=== PATIENT | female | born 1970 | race African-American/Black ===

== ENCOUNTER 2018-11-29 07:30 | Inpatient (IN) ==
[2018-12-02 12:57] LABS: Basophils % 0.6 % (0.0-0.8); Eosinophils # 0.4 10*3/uL (0.0-0.87); Eosinophils % 5.7 % (0.00-10.9); Hematocrit 36.7 VOL% (35.7-47.0); Hemoglobin 12.1 GM/DL (12.0-16.0); Immature Granulocytes % 0.2 %; Immature Granulocytes Absolute 0.01 #; Lymphocytes # 1.9 10*3/uL (1.4-4.0); Lymphocytes % 29.3 % (21.3-54.2); Mean Corpuscular Volume 90.2 FL (87-102); Mean Platelet Volume 9.7 FL (9.6-12.0); Monocytes % 7.8 % (1.7-12.7); Neutrophils % 56.4 % (38.7-73.9); Platelet Count 450 T/CUMM (130-400); Red Blood Count 4.07 MC/CUMM (3.8-5.5); Red Cell Distribution Width 13.2 % (9.3-17.3); White Blood Count 6.5 T/CUMM (4-12)
[2018-12-02 13:06] LABS: Apearance,Urine CLEAR (Clear); Bilirubin,Urine Negative (Negative); Blood, Urine Negative (Negative); Glucose,Urine (UA) Negative (Negative); Ketones,Urine Negative (Negative); Mucus,Urine Occasional /LPF (Occasional); Nitrite,Urine Negative (Negative); Protein,Urine Negative; RBC,Urine 1 /HPF (0-4); Squamous Epithelial Cell,Urine Occasional /HPF (0-10); Urine Color Yellow (Yellow); Urine Urobilinogen < 2.0 EU/DL (0.2-1.0)
[2018-12-02 13:36] LABS: Alanine Aminotransferase 20 U/L (13-56); Albumin 3.7 G/DL (3.4-5.0); Alkaline Phosphatase 66 U/L (45-117); Aspartate Amino Transferase 15 U/L (0-37); Bilirubin,Total < 0.39 MG/DL (0.2-1.0); Blood Urea Nitrogen 8 MG/DL (7-18); Glucose 82 MG/DL (74-106); HDL Cholesterol 66 MG/DL (40-60); Osmolality,Calculated 269.8 MOS/KG (273-304); Risk Ratio 2.53; Total Protein 7.6 G/DL (6.4-8.3); Triglycerides 148 MG/DL (2-150); VLDL CHOLESTEROL 29.6 MG/DL
[2018-12-02 14:23] LABS: HIV Antigen/Antibody Result Nonreactive (Nonreactive)
[2018-12-20] MEDS ORDERED: AMPICILLIN/SULBACTAM 3,000 MG VIAL ONE (05:52)
[2018-12-20] MEDS ORDERED: LACTATED RINGERS 1,000 ML IV SCH ×2 (06:00→09:30)
[2018-12-20] MEDS ORDERED: AMPICILLIN/SULBACTAM 3,000 MG in SODIUM CHLORIDE 0.9% 100 ML IV ONE (06:00)
[2018-12-20] MEDS ORDERED: MICROFIBRILLAR COLLAGEN POWDER 1 GM CAN TOP ONE (06:43)
[2018-12-20] MEDS ORDERED: LIDOCAINE 1%/EPI INJ 20 ML VIAL ONE (06:43)
[2018-12-20] MEDS ORDERED: BUPIVACAINE 0.5% 50 ML VIAL ONE (07:04)
[2018-12-20] MEDS ORDERED: ACETAMINOPHEN 325 MG TABLET PO PRN (09:08)
[2018-12-20] MEDS ORDERED: BENZOCAINE/MENTHOL LOZENGE 18/BOX PO PRN (09:08)
[2018-12-20] MEDS ORDERED: BISACODYL 10 MG SUPP RECTAL PRN (09:08)
[2018-12-20] MEDS ORDERED: ONDANSETRON 4 MG/2 ML VIAL IV PRN ×2 (09:08→09:36)
[2018-12-20] MEDS ORDERED: ONDANSETRON 4 MG/2 ML VIAL ONE (09:31)
[2018-12-20] MEDS ORDERED: HYDROmorphone 2 MG/1 ML VIAL ONE (09:31)
[2018-12-20] MEDS ORDERED: MEPERIDINE 25 MG/1 ML VIAL IV PRN (09:36)
[2018-12-20] MEDS: HYDROmorphone 2 MG/1 ML VIAL IV PRN ×4 (09:45→19:57)
[2018-12-20] MEDS ORDERED: SEVOFLURANE 1 UNIT/15 MINUTE INH ONE (09:50)
[2018-12-20] MEDS ORDERED: PROPOFOL 200 MG/20 ML VIAL IV ONE (09:50)
[2018-12-20] MEDS ORDERED: fentaNYL 100 MCG/2 ML VIAL ONE (09:50)
[2018-12-20] MEDS ORDERED: KETOROLAC 30 MG/1 ML VIAL ONE (09:51)
[2018-12-20] MEDS ORDERED: MIDAZOLAM 2 MG/2 ML VIAL ONE (09:51)
[2018-12-20] MEDS ORDERED: PHENYLEPHRINE 1 MG/10 ML SYRINGE IV ONE (09:51)
[2018-12-20] MEDS ORDERED: GLYCOPYRROLATE 0.4 MG/2 ML VIAL ONE (09:51)
[2018-12-20] MEDS ORDERED: DEXAMETHASONE 4 MG/1 ML VIAL ONE (09:51)
[2018-12-20] MEDS ORDERED: LACTATED RINGERS 1,000 ML IV ONE (09:52)
[2018-12-20] MEDS ORDERED: SUCCINYLCHOLINE 200 MG/10 ML VIAL ONE (09:52)
[2018-12-20] MEDS ORDERED: NEOSTIGMINE 10 MG/10 ML VIAL ONE (09:52)
[2018-12-20] MEDS ORDERED: ROCURONIUM 100 MG/10 ML VIAL IV ONE (09:52)
[2018-12-20] MEDS ORDERED: ACETAMINOPHEN 1,000 MG/100 ML VIAL IV ONE (09:52)
[2018-12-20 09:57] LABS: Apearance,Urine CLEAR (Clear); Bilirubin,Urine Negative (Negative); Blood, Urine Small mg/dL (Negative); Glucose,Urine (UA) Negative (Negative); Ketones,Urine Negative (Negative); Nitrite,Urine Negative (Negative); Protein,Urine Negative; RBC,Urine <1 /HPF (0-4); Urine Color Colorless (Yellow); Urine Specific Gravity 1.005 (1.001-1.035); Urine Urobilinogen < 2.0 EU/DL (0.2-1.0)
[2018-12-20] MEDS: SODIUM CHLORIDE 0.9% 1,000 ML IV SCH ×2 (13:08→21:02)
[2018-12-20] MEDS: ceFAZolin 1,000 MG in SYRINGE 1 EACH IV SCH ×2 (15:50→23:33)
[2018-12-20 17:53] LABS: Basophils % 0.1 % (0.0-0.8); Hematocrit 33.3 VOL% (35.7-47.0); Hemoglobin 10.8 GM/DL (12.0-16.0); Immature Granulocytes % 0.7 %; Immature Granulocytes Absolute 0.11 #; Lymphocytes # 0.3 10*3/uL (1.4-4.0); Lymphocytes % 1.8 % (21.3-54.2); Mean Corpuscular HGB Conc 32.4 GM/DL (32-36); Mean Corpuscular Volume 91.5 FL (87-102); Mean Platelet Volume 9.9 FL (9.6-12.0); Monocytes % 1.6 % (1.7-12.7); Neutrophils % 95.8 % (38.7-73.9); Platelet Count 363 T/CUMM (130-400); Red Blood Count 3.64 MC/CUMM (3.8-5.5); Red Cell Distribution Width 13.2 % (9.3-17.3); White Blood Count 16.7 T/CUMM (4-12)
[2018-12-20 18:23] LABS: Lymphocytes 3 % (20-55); Segmented Neutrophils 95 % (50-85); Total Cells Counted 100
[2018-12-20 18:32] LABS: Platelet Estimate Normal
[2018-12-20 18:33] LABS: Hypochromasia Slight
[2018-12-20] MEDS: IBUPROFEN 800 MG TABLET PO PRN (23:47)
[2018-12-21 06:26] LABS: Basophils % 0.2 % (0.0-0.8); Eosinophils % 0.1 % (0.00-10.9); Hematocrit 28.7 VOL% (35.7-47.0); Hemoglobin 9.3 GM/DL (12.0-16.0); Immature Granulocytes % 0.6 %; Immature Granulocytes Absolute 0.07 #; Lymphocytes # 1.2 10*3/uL (1.4-4.0); Lymphocytes % 9.6 % (21.3-54.2); Mean Corpuscular HGB Conc 32.4 GM/DL (32-36); Mean Corpuscular Volume 90.8 FL (87-102); Mean Platelet Volume 9.7 FL (9.6-12.0); Monocytes % 7.5 % (1.7-12.7); Platelet Count 315 T/CUMM (130-400); Red Blood Count 3.16 MC/CUMM (3.8-5.5); White Blood Count 12.4 T/CUMM (4-12)
[2018-12-21] MEDS: METOCLOPRAMIDE 10 MG TABLET PO SCH ×3 (09:02→23:42)
[2018-12-21] MEDS: MAGNESIUM HYDROXIDE SUSP 30 ML UDCUP PO PRN ×2 (09:02→22:56)
[2018-12-21] MEDS: IBUPROFEN 800 MG TABLET PO PRN ×2 (11:05→23:44)
[2018-12-21] MEDS: DOCUSATE SODIUM 100 MG CAPSULE PO PRN (21:40)
[2018-12-22] MEDS ORDERED: MAGNESIUM CITRATE 300 ML BOTTLE PO ONE (07:36)
[2018-12-22] MEDS: DOCUSATE SODIUM 100 MG CAPSULE PO PRN (08:52)
[2018-12-22] MEDS: METOCLOPRAMIDE 10 MG TABLET PO SCH ×2 (08:52→16:10)
[2018-12-22] MEDS: IBUPROFEN 800 MG TABLET PO PRN (10:36)
[2018-12-22 11:34] VITALS: BP 122/73
[2018-12-22] MEDS ORDERED: oxyCODONE/ACETAMINOPHEN 5-325 MG TABLET PO PRN (12:38)
== END 2018-12-22 16:00 | disposition home or self-care (01) | DRG 743 ==
LOC: N.SDSINP 12-20 05:49 → N.OB 12-20 10:42
PROVIDERS: ADMIT Obstetrics & Gynecology; ATTEND Obstetrics & Gynecology

== ENCOUNTER 2020-09-26 17:36 | Observation (INO) ==
[2020-09-26] MEDS ORDERED: NITROGLYCERIN SL 0.4 MG TABLET SL PRN ×2 (18:07→22:56)
[2020-09-26] MEDS ORDERED: ASPIRIN 325 MG TABLET PO STA (18:07)
[2020-09-26] MEDS ORDERED: NITROGLYCERIN SL 0.4 MG TABLET SL ONE (18:13)
[2020-09-26 18:16] LABS: Basophils # 0.1 10*3/uL (0.0-0.2); Eosinophils # 0.3 10*3/uL (0.0-0.87); Eosinophils % 5.6 % (0.00-10.9); Hematocrit 41.9 VOL% (35.7-47.0); Hemoglobin 13.4 GM/DL (12.0-16.0); Lymphocytes # 2.8 10*3/uL (1.4-4.0); Lymphocytes % 53.1 % (21.3-54.2); Mean Corpuscular Volume 93.7 FL (87-102); Mean Platelet Volume 9.5 FL (9.6-12.0); Monocytes % 7.9 % (1.7-12.7); Neutrophils % 32.4 % (38.7-73.9); Platelet Count 403 T/CUMM (130-400); Red Blood Count 4.47 MC/CUMM (3.8-5.5); Red Cell Distribution Width 13.1 % (9.3-17.3); White Blood Count 5.2 T/CUMM (4-12)
[2020-09-26 18:43] LABS: Alanine Aminotransferase 24 U/L (13-56); Albumin 3.8 G/DL (3.4-5.0); Alkaline Phosphatase 94 U/L (45-117); Aspartate Amino Transferase 19 U/L (0-37); Bilirubin,Total < 0.39 MG/DL (0.2-1.0); Blood Urea Nitrogen 14 MG/DL (7-18); Calcium 9.3 MG/DL (8.5-10.1); Carbon Dioxide 26 MMOL/L (21-32); Estimated Glom Filtration Rate 99 ML/MIN; Glucose 90 MG/DL (74-106); Osmolality,Calculated 275.7 MOS/KG (273-304); PT Patient Result 10.9 SECS (9.8-11.9); Potassium 3.6 MMOL/L (3.5-5.1); Sodium 138 MMOL/L (136-145); Total Protein 8.3 G/DL (6.4-8.3)
[2020-09-26] MEDS ORDERED: ORPHENADRINE 60 MG/2 ML VIAL IV STA (19:13)
[2020-09-26] MEDS ORDERED: KETOROLAC 30 MG/1 ML VIAL IV STA (19:13)
[2020-09-26] MEDS ORDERED: ONDANSETRON 4 MG/2 ML VIAL IV ONE (20:14)
[2020-09-26 20:41] LABS: Eosinophils 3 % (0-10); Lymphocytes 53 % (20-55); Platelet Estimate Adequate; Segmented Neutrophils 38 % (50-85); Total Cells Counted 100
[2020-09-26] MEDS ORDERED: GLUCAGON 1 MG VIAL IM PRN (22:48)
[2020-09-26] MEDS ORDERED: DEXTROSE 50% 25 GM/50 ML VIAL IV PRN (22:48)
[2020-09-26] MEDS ORDERED: ONDANSETRON 4 MG/2 ML VIAL IV PRN (22:48)
[2020-09-26] MEDS ORDERED: ACETAMINOPHEN 325 MG TABLET PO PRN (22:48)
[2020-09-26] MEDS ORDERED: MORPHINE 4 MG/1 ML VIAL IV PRN (22:48)
[2020-09-26] MEDS ORDERED: hydrALAZINE 20 MG/1 ML VIAL IV PRN (22:48)
[2020-09-26] MEDS ORDERED: DOCUSATE SODIUM 100 MG CAPSULE PO PRN (22:48)
[2020-09-26] MEDS ORDERED: PANTOPRAZOLE 40 MG VIAL IV ONE (22:56)
[2020-09-26] MEDS ORDERED: ENOXAPARIN 40 MG/0.4 ML SYRINGE SUBCUT SCH (23:00)
[2020-09-27 05:36] LABS: Basophils % 0.4 % (0.0-0.8); Eosinophils # 0.3 10*3/uL (0.0-0.87); Eosinophils % 6.4 % (0.00-10.9); Hematocrit 38.7 VOL% (35.7-47.0); Hemoglobin 13.2 GM/DL (12.0-16.0); Immature Granulocytes % 0.2 %; Immature Granulocytes Absolute 0.01 #; Lymphocytes # 2.7 10*3/uL (1.4-4.0); Lymphocytes % 54.9 % (21.3-54.2); Mean Corpuscular HGB Conc 34.1 GM/DL (32-36); Mean Corpuscular Volume 89.6 FL (87-102); Mean Platelet Volume 10.1 FL (9.6-12.0); Monocytes % 7.6 % (1.7-12.7); Neutrophils % 30.5 % (38.7-73.9); Platelet Count 400 T/CUMM (130-400); Red Blood Count 4.32 MC/CUMM (3.8-5.5); Red Cell Distribution Width 12.9 % (9.3-17.3); White Blood Count 4.9 T/CUMM (4-12)
[2020-09-27 06:21] LABS: Albumin 3.4 G/DL (3.4-5.0); Calcium 8.9 MG/DL (8.5-10.1); Osmolality,Calculated 281.3 MOS/KG (273-304); Potassium 3.5 MMOL/L (3.5-5.1); Risk Ratio 3.46; Thyroid Stimulating Hormone 3.33 uIU/ml (0.358-3.74); Total Protein 7.4 G/DL (6.4-8.3)
[2020-09-27 06:29] LABS: Eosinophils 5 % (0-10); Lymphocytes 62 % (20-55); Platelet Estimate Increased; Segmented Neutrophils 27 % (50-85); Total Cells Counted 100
[2020-09-27] MEDS: INSULIN LISPRO 100 UNIT/ML SUBCUT SCH ×2 (07:48→11:11)
[2020-09-27] MEDS ORDERED: OMEGA 3 ACID ETHYL ESTERS 1 GM CAPSULE PO SCH (09:00)
[2020-09-27] MEDS ORDERED: ASPIRIN EC 81 MG TABLET PO SCH (09:00)
[2020-09-27] MEDS ORDERED: MULTIVITAMIN (CENTRUM) TABLET PO SCH (09:00)
[2020-09-27] MEDS ORDERED: ASCORBIC ACID 500 MG TABLET PO SCH (09:00)
[2020-09-27] MEDS ORDERED: MULTIVITAMIN (BEROCCA) TABLET PO SCH (09:00)
[2020-09-27] MEDS ORDERED: ZINC GLUCONATE 50 MG TABLET PO SCH (09:00)
[2020-09-27] MEDS ORDERED: CHOLECALCIFEROL 5,000 UNIT TABLET PO SCH (09:00)
[2020-09-27] MEDS ORDERED: MAGNESIUM CHLORIDE 64 MG TABLET PO SCH (09:00)
[2020-09-27] MEDS ORDERED: ROSUVASTATIN 10 MG TABLET PO SCH (09:00)
[2020-09-27 12:03] VITALS: BP 114/59
== END 2020-09-27 15:30 | disposition home or self-care (01) ==
LOC: N.ED 17:36 → N.EDINP 17:36 → N.3E 21:53
PROVIDERS: ADMIT Internal Medicine; ATTEND Internal Medicine